=== PATIENT | male | born 1990 | race Caucasian/White ===

== ENCOUNTER 2020-11-10 08:32 | Emergency (ER) | payer MEDICAID ==
[~2020-11-10] VITALS: Ht 190.5 cm; Wt 102.3 kg
[~2020-11-10 08:32] MED LIST: NO HOME MEDS
[2020-11-10 09:00] VITALS: BP 145/96
[2020-11-10] MEDS ORDERED: oxyCODONE/APAP 5-325mg tablet PO ONE (09:10)
[2020-11-10] MEDS ORDERED: LIDOcaine 1% W/epiNEPHrine 1:200,000 10ml vial IJ ONE (09:10)
[2020-11-10] MEDS ORDERED: TETanus/Pertussis (Acell)/Diphther VAC/PF (Tdap-Adult) 0.5ml syringe IMVAC ONE (09:10)
[2020-11-10] MEDS ORDERED: ketorolac tromethamine 15mg/ml inj. IM ONE (09:10)
--- NOTE | 2020-11-10 09:54 | NUR ---
order for ulnar gutter splint as per verbal order from dr wilder.
--- NOTE | 2020-11-10 09:59 | NUR ---
notified dr jama aware of pt pain 09/18 after the meds.
[2020-11-10] MEDS ORDERED: HYDR-3965 PO (10:12)
--- NOTE | 2020-11-10 10:21 | NUR ---
pt splinted by geraldine wade .
== END 2020-11-10 10:24 | disposition home or self-care (01) ==
LOC: ER 08:32
DX: S62.92XA Unspecified fracture of left hand, initial encounter for closed fracture (principal); M79.642 Pain in left hand; Z20.3 Contact with and (suspected) exposure to rabies; Z79.899 Other long term (current) drug therapy; X58.XXXA Exposure to other specified factors, initial encounter; Y93.89 Activity, other specified; Y92.89 Other specified places as the place of occurrence of the external cause; Y99.8 Other external cause status
CPT/HCPCS: 29125; 73130; 90471; 90715; 96372; 99284; J1885